=== PATIENT | female | born 1985 | race Caucasian/White ===

== ENCOUNTER → 2021-01-18 | Outpatient (CLI) | payer MEDICAID ==
--- NOTE | 2021-01-19 09:52 | XR ---
EXAMINATION TYPE: XR clavicle RT DATE OF EXAM: 01/18/2021 COMPARISON: NONE HISTORY: Pain TECHNIQUE: One view submitted FINDINGS: Postsurgical change involving the right clavicle with evidence of previous fracture. There is a bony fragment inferior to the fracture line and there remains a lucency with nonunion fracture l ine along the mid shaft oblique in orientation. Remaining visualized osseous structures intact. Visua lized lung espinal clear. IMPRESSION: Surgical change with nonunion fracture.
== END | disposition home or self-care (01) ==
LOC: RADXRMAIN 16:36
PROVIDERS: ATTEND Orthopaedic Surgery
DX: S42.021K Displaced fracture of shaft of right clavicle, subsequent encounter for fracture with nonunion (principal); Z98.890 Other specified postprocedural states

== ENCOUNTER → 2021-02-07 | Outpatient (CLI) | payer MEDICAID ==
--- NOTE | 2021-02-07 20:07 | XR ---
Right clavicle HISTORY: Clavicle fracture Single frontal view of the right clavicle submitted and correlated to prior exam 01/18/2021 Findings are similar to prior exam. There is persistent lucency in the mid diaphyseal right clavicle. Multiple screws across the clavicle cortex as on prior. Alignment is maintained. Right lung apex as visualized is normal. Comminuted fragment shows no definite bony fusion. IMPRESSION: Status post open reduction internal fixation with nonunion
== END | disposition home or self-care (01) ==
LOC: RADXRMAIN 16:34
PROVIDERS: ATTEND Orthopaedic Surgery
DX: S42.001A Fracture of unspecified part of right clavicle, initial encounter for closed fracture (principal)

== ENCOUNTER → 2021-03-13 | Outpatient (CLI) | payer MEDICAID ==
--- NOTE | 2021-03-13 13:27 | XR ---
EXAMINATION TYPE: XR clavicle RT DATE OF EXAM: 03/13/2021 COMPARISON: 02/07/2021 HISTORY: Follow-up TECHNIQUE: One view submitted FINDINGS: Findings are similar to prior exam. There is persistent lucency in the mid diaphyseal right clavicle. Multiple screws across the clavicle cortex as on prior. Alignment is maintained. Right evaristo g apex as visualized is normal. Comminuted fragment shows no definite bony fusion. Chronic rib deform ities are noted. IMPRESSION: Stable postsurgical change with no significant interval change in the appearance of the c lavicle. No significant callus formation.
== END | disposition home or self-care (01) ==
LOC: RADXRMAIN 12:55
PROVIDERS: ATTEND Orthopaedic Surgery
DX: Z09 Encounter for follow-up examination after completed treatment for conditions other than malignant neoplasm (principal)

== ENCOUNTER → 2021-03-13 | Outpatient (CLI) | payer MEDICAID ==
--- NOTE | 2021-03-13 14:00 | CT ---
EXAMINATION TYPE: CT chest wo con DATE OF EXAM: 03/13/2021 COMPARISON: None HISTORY: 35-year-old female J93.9, E66.9, Pneumothorax and right sided rib fractures from fall in Oct. TECHNIQUE: Contiguous axial scanning of the chest without IV contrast. Coronal and sagittal reconstru ctions performed. CT DLP: 667 mGycm Automated exposure control for dose reduction was used. FINDINGS: The heart is normal size without pericardial effusion. Aorta normal caliber with conventional arch vessel branching anatomy. Scattered nonenlarged mediastinal lymph nodes measuring up to 6 mm. No progressive lymphadenopathy by CT size criteria. No consolidation, pneumothorax, or pleural effusion. Visualized upper abdomen shows no gross abnormality. Bones: Plate and screw fixation across the right clavicle. Healed fracture deformities of the right lateral second through seventh ribs. Some of these fractures have healed with mild displacement res ulting in contour irregularity. Some residual fracture lucency remains at the sixth and seventh rib fractures but healing appears nearly complete. There is a right paracentral disc herniation at T11-T12 incidentally noted. IMPRESSION: 1. HEALED FRACTURE DEFORMITIES RIGHT LATERAL SECOND THROUGH SEVENTH RIBS. SOME OF THESE FRACTURES HAV E HEALED IN MILD DISPLACEMENT RESULTING IN CONTOUR STEP-OFFS. THE SIXTH AND SEVENTH RIB FRACTURES NELLI W SLIGHT RESIDUAL LUCENCY SUGGESTING NEARLY HEALED FRACTURES. 2. NO PNEUMOTHORAX OR ACUTE PULMONARY PROCESS. 3. PARTIALLY VISUALIZED PLATE AND SCREW FIXATION ACROSS THE RIGHT CLAVICLE. 4. INCIDENTAL RIGHT PARACENTRAL DISC HERNIATION AT T11-T12.
== END | disposition home or self-care (01) ==
LOC: RADCTMAIN 12:48
PROVIDERS: ATTEND Internal Medicine Pulmonary Disease
DX: S22.42XA Multiple fractures of ribs, left side, initial encounter for closed fracture (principal)
CPT/HCPCS: 71250

== ENCOUNTER → 2021-08-28 | Outpatient (CLI) | payer MEDICAID ==
--- NOTE | 2021-08-28 14:41 | XR ---
EXAMINATION TYPE: XR clavicle RT DATE OF EXAM: 08/28/2021 COMPARISON: 03/13/2021 HISTORY: Pain TECHNIQUE: 1 view is submitted FINDINGS: Postsurgical change overlying the right clavicle. There is reduced visualization of the rig ht fracture relative to the prior exam. IMPRESSION: Postoperative change.
== END | disposition home or self-care (01) ==
LOC: RADXRMAIN 14:19
PROVIDERS: ATTEND Orthopaedic Surgery
DX: S42.021S Displaced fracture of shaft of right clavicle, sequela (principal); X58.XXXS Exposure to other specified factors, sequela